=== PATIENT | male | born 1950 | race Caucasian/White ===

== ENCOUNTER → 2016-08-19 | Outpatient (CLI) | payer OTHER | LOC: CIMAGING 14:25 | PROVIDERS: ATTEND Otolaryngology | DX: J32.9 Chronic sinusitis, unspecified (principal); J34.9 Unspecified disorder of nose and nasal sinuses; D86.0 Sarcoidosis of lung; J30.9 Allergic rhinitis, unspecified; J33.9 Nasal polyp, unspecified | CPT/HCPCS: 70486-PO ==